=== PATIENT | male | born 1960 | race Caucasian/White ===

== ENCOUNTER 2019-10-24 09:42 | Outpatient (CLI) | payer OTHER ==
[~2019-10-24 09:42] MED LIST: NORCO 5-325 TA1 EACH ORAL; PROZAC20 MG ORAL; SIMVASTATIN5 MG ORAL
--- NOTE | 2019-10-24 10:49 | Pre-Procedure Note/Attestation ---
Pre-Procedure Note/Attestation Complete Prior to Procedure Planned Procedure: right Procedure Narrative: US guided thyroid bx Indications for Procedure Pre-Operative Diagnosis: R neck mass Attestation I attest that I discussed the nature of the procedure; its benefits; risks and complications; and alternatives (and the risks and benefits of such alternatives ), prior to the procedure, with the patient (or the patient's legal customer operations representative). I attest that, if there was a reasonable possibility of needing a blood transfusion, the patient (or the patient's legal customer operations representative) was given the [facility] standardized written summary, pursuant to the [employer] Blood Safety Act ([place] Health and Safety Code # 1645, as amended). I attest that I re-evaluated the patient just prior to the surgery and that there has been no change in the patient's H&P, except as documented below: Srikanth Loya MD Oct 24, 2019 10:49
--- NOTE | 2019-10-24 10:50 | Brief Operative Note ---
Immediate Post Operative Note Operative Note Pre-op Diagnosis: R neck mass Procedure: R thyroid FNA and core bx Post-op Diagnosis: same as pre-op Surgeon: Tom Hamilton Anesthesia: local Specimen: yes - 4 25G FNA, 2 20G cores Complications: none Condition: stable Fluids: none Implant(s) used?: No Srikanth Hamilton MD Oct 24, 2019 10:50
--- NOTE | 2019-10-24 15:33 | Diagnostic Imaging Report ---
Indication: Right neck mass demonstrated on prior outside CT scan Technique: Prior imaging studies reviewed. Informed consent obtained prior to commencement of the procedure. Procedural timeout performed. 7 used to localize optimal puncture site. Sterile prepping and draping of the right neck. Local anesthesia with 1% lidocaine. Under real-time ultrasound guidance, a total of 4 needle passes made into the right upper pole thyroid mass using 25-gauge hypodermic needles. Specimen was reviewed for adequacy by the pathologist. She requested additional core samples. 19-gauge guide needle was passed into the periphery of the target lesion, and total of 2 20-gauge core biopsy specimens were obtained using automated biopsy gun. Success was placed in formalin, sent to pathology. The patient tolerated the procedure well, without immediate complication. Comparison: Reference made to outside CT neck 10/10/2019 Findings: Intraoperative images document needle placement within the target mass. Impression: Ultrasound guided FNA and biopsy of right upper pole mass, as described. Final pathology pending
== END 2019-10-24 11:42 | disposition home or self-care (01) ==
LOC: ULS 09:42
DX: R22.1 Localized swelling, mass and lump, neck (principal)
CPT/HCPCS: 76942